=== PATIENT | female | born 1980 | race Caucasian/White ===

== ENCOUNTER 2021-04-12 03:30 | Outpatient (CLI) | payer MEDICAID, SELFPAY ==
--- OUTSIDE RECORDS SUMMARY | 2021-04-12 03:33 | XMS_ITS ---
:1980 Author Care Team Providers Name Role Phone DR. MERLINE LOPEZ Primary Care Provider [phone] DR. MERLINE LOPEZ Referring Provider [phone] Allergies Code Code System Name Reaction Severity Status Onset 017219 RxNorm Estrogel ? ? Active ? 061784 RxNorm Vicodin Hives ? Active ? Itching ? Active ? Medications Name Status Start Date Stop Date ? ? dextroamphetamine ER 10 mg capsule,extended release Active ? Not available Take 2 capsules every day by oral route. escitalopram 10 mg tablet Active ? Not av ailable Take 1 tablet every day by oral route. ibuprofen 600 mg tablet Active ? Not avai lable Take 1 tablet 3 times a day by oral route as needed. lorazepam 1 mg tablet Active ? Not availa ble Take 1 tablet every 6 hours by oral route as needed. metoprolol succinate ER 25 mg tablet,extended release 24 hr Acti ve ? Not available Take 1 tablet every day by oral route. Problems Name Status Onset Date Source ? Obesity Active 10/08/2018 ? Generalized Anxiety Disorder Active 10/08/2018 ? Factitious Disorder Active 10/08/2018 ? Depressive Disorder Active 10/08/2018 ? Attention Deficit Hyperactivity Disorder Active 019 ? Lesion of Ulnar Nerve Active 10/08/2018 ? Neuropathy Active 10/08/2018 ? Disorder of Teeth AND/OR Supporting Active 10/08/2018 ? 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 Neck Pain Active 10/08/2018 ? Brachial Neuritis Active 10/08/2018 ? Sciatica Active 10/08/2018 ? Muscle Weakness Active 10/08/2018 ? Pain in Left Arm Active 10/08/2018 ? Sleep Disorder Active 10/08/2018 ? Anesthesia of Skin Active 10/08/2018 ? Palpitations Active 10/08/2018 ? Generalized Abdominal Pain Active 10/08/2018 ? Pain in Right Foot Active 10/08/2018 ? Cyst of Left Ovary Active 10/08/2018 ? Procedures Date Name Performed by ? 05/14/2014 Oophorectomy Information not avai lable 10/12/2012 Surgical Procedure on Cervical Spine Inf ormation not available Results Lab Results None recorded. Past Encounters None recorded. Social History Tobacco Smoking Status Former Smoker Notes: 10/09/18 Vaccine List Vaccine Type Tdap 04/06/2012 Plan of Care Reminders Provider Appointments None ? ? recorded. Lab None ? ? recorded. Referral None ? ? recorded. Procedures None ? ? recorded. Surgeries None ? ? recorded. Imaging None ? ? recorded. Vitals Height Weight BMI Blood Pressure 160.02 cm 86.18 kg 33.7 kg/m2 118/62 mm[Hg]
--- OUTSIDE RECORDS SUMMARY | 2021-04-12 03:33 | XMS_ITS | Encounter Summary ---
:1980 Author Care Team Providers Name Role Phone Porfirio Engel MD Primary Care Provider [phone] Reason for Visit None recorded. Assessment and Plan 1. Generalized anxiety disorder ongoing stressors with ongoing relational issues. feels dose adjustment may be beneficial ? duloxetine 30 mg capsule,d elayed release 2. Attention deficit hyperactivi ty disorder continue meds as in place 3. Depressive disorder increase meds as above 4. Non-epileptic myoclonus pseudoseizures. by report limi gilberto/less at this time. care as per neurology 5. Neck pain using msk relaxer as per neuro , seems to be helping, continue. 6. Headache daily, sometimes migraine. sta rted on mag by neuro as well as has triptan prn. Discussion Note: None recorded.Patient educational handouts: No information available. Plan of Care Reminders Provider Appointments None ? ? recorded. Lab None ? ? recorded. Referral None ? ? recorded. Procedures None ? ? recorded. Surgeries None ? ? recorded. Imaging None ? ? recorded. Medications Name Start Date ? ? Adderall XR 10 mg capsule,extended release ? Take 2 capsules every day by oral route. clonazepam 0.5 mg tablet ? 1 (one) Tablet Tablet: Twice daily duloxetine 30 mg capsule,delayed release ? Take 1 capsule every day by oral route. duloxetine 60 mg capsule,delayed release ? Take 1 capsule every day by oral route. IBU 600 mg tablet ? Take 1 tablet every 6 hours by oral route as needed. lorazepam 1 mg tablet ? TAKE ONE TABLET BY MOUTH EVERY 6 HOURS NEEDED magnesium 400 mg (as magnesium oxide) tablet ? Take 1 tablet every day by oral route at bedtime. meloxicam 15 mg tablet ? Take 1 tablet every day by oral route. methocarbamol 500 mg tablet ? Take 1 tablet every day by oral route at bedtime. Skelaxin 800 mg tablet ? Take 1 tablet every day by oral route at bedtime. Sprintec (28) 0.25 mg-35 mcg tablet ? Take 1 tablet every day by oral route. sumatriptan 50 mg tablet ? Take 1 tablet every 8 hours by oral route as directed . take one at onset of headache. may repeat x 1 in 4 h ours if still present. Notes: 01/26/21 verbal review Medications Administered None recorded. Vitals Height 5 ft 2.25 in Results Lab Results None recorded. Allergies Code Code System Name Reaction Severity Onset 759901 RxNorm Vicodin Hives ? Itching ? ? Problems Name Status Onset Date Source ? Intermittent Palpitations Active 05/22/2018 ? Body Mass Index 30+ - Obesity Active ? Hi story Obesity Active ? History Generalized Anxiety Disorder Active ? His tory Factitious Disorder Active ? History Depressive Disorder Active ? History Attention Deficit Hyperactivity Active ? History Disorder Seizure Disorder Active ? ? Lesion of Ulnar Nerve Active ? History Neuropathy Active ? History Neck Pain Active ? History Sciatica Active ? History Pain in Left Arm Active ? History Sleep Disorder Active ? History Palpitations Active ? History Generalized Abdominal Pain Active ? Histo ry Brachial Neuritis Active ? History Cyst of Left Ovary Active ? History Procedures Date Name Performed by ? 05/11/2020 Revise Ulnar Nerve at Elbow Information not available Notes: L anterior ulnar n. transposit ion 01/12/2015 Oophorectomy Information not avai lable 10/12/2012 Cervical Spine Surgery Information not a vailable Notes: Cervical fusion Vaccine List Vaccine Type COVID-19 vaccine, vector-nr, [id number], PF , 0.5 mL ([employer]) 07/21/2020 DTP 04/21/1983 08/08/1983 10/30/1984 12/27/1987 01/02/1989 influenza, injectable, quadrivalent, pre servative free 06/14/2015 04/11/2017 02/07/2018?0.5 mL 04/21/2019 03/01/2020 MMR 10/30/1984 09/06/1992 OPV 04/21/1983 08/08/1983 10/30/1984 12/27/1987 01/02/1989 Td (adult), adsorbed 05/14/2000 Tdap 04/06/2012?0.5 mL varicella Social History Tobacco Smoking Status Heavy Tobacco Smoker (1/2 pack per day) Any signs of neglect or no signs of neglect or abuse abuse? noted Are you currently employed? Y Have you used IV drugs? N Are you blind or do you have N difficulty seeing? What is your code status? 0 How much tobacco do you chew? none What was the date of your 12/16/2020 most recent tobacco screening? Do you have an advanced N directive? Do you feel safe at home? Y What is your exercise level? Occasional How many years have you 5 smoked tobacco? Animal exposure? Y Notes: Cat and Do g Live alone or with others? with others Notes: Lalita celaya and Bryn What is your level of alcohol Occasional consumption? Which of your hands is Right dominant? Education 2 Year College What is your current pack 20-29packyears years? Hard of hearing or deaf in Y Notes: Dec reased per pt one or both ears? Are you passively exposed to N smoke? What is your level of Moderate Notes: 2 cups o f coffee caffeine consumption? a day, 1 soda ever y other day. Are there any guns present in N your home? 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 Family History Relation Problem Onset Age of Age Notes Father Alcohol abuse (No N/A (No Notes) Information) Father Hypertensive disorder (No N/A (No No kenny) Information) Brother Deep venous thrombosis (No N/A (No N otes) Information) Functional Status No Impairment. Past Encounters 01/26/2021 Generalized Anxiety Disorder; Attention Deficit Hyperactivity Disorder; Depressive Disorder; Non-epileptic Myoclonus; Neck Pain; Headache Porfirio Engel MD: [address] [place] [phone], Ph. History of Present Illness ? Generalized Anxiety Disorder Reported By: Patient HPI: Context: life stressors; dom estic relationship, trauma triggers at work, kids, situational, confusion . Modifying Factors: rest; massage, medications. Associated Symp toms: difficulty concentrating, difficulty controlling worry, difficult y swallowing, excess anxiety, excessive sweating, increased heart ra te, nausea, diarrhea, fatigue, high irritability, muscle tension , muscle aches, trembling, twitching, exaggerated startle response , headaches, restlessness, sleep disturbances Note:
<div>Patient reports taking 60 mg duloxetine daily, would like to discuss an increase.</div><div>Patient reports decreased anxiety due to clonazepam, patient reports not taking during the day due to drowsiness. Patient reports taking one tab every afternoon after work, does not take a second dose. Patient reports difficulty obtaining counselling, does not know all of triggers, the last week </div><div>increased symptoms at work, and at home. ongoing relational stressors. limited seizure activity, has johnson daily, sometimes migraine, feels somewhat improved with magnesium. ongoing neck pain, med at night seems to help.</div>Review of Systems: ROS as noted in the HPI Review of Systems None recorded. Physical Exam ? Notes: <p>female nad, anxious at ti mes</p>
--- OUTSIDE RECORDS SUMMARY | 2021-04-12 03:33 | XMS_ITS ---
:1980 Author Care Team Providers Name Role Phone MERLINE ENGEL MD Primary Care Provider [phone] Allergies Code Code System Name Reaction Severity Status Onset 090682 RxNorm Vicodin Hives ? Active ? Itching ? Active ? 854430 RxNorm Estrogel ? ? Deactivated ? Medications Name Status Start Date Stop Date ? ? Adderall XR 10 mg capsule,extended release Active ? Not available Take 2 capsules every day by oral route. Adderall XR 15 mg capsule,extended Completed ? 12/06/2017 release Adderall XR 20 mg capsule,extended release Completed ? 05/22/2018 Take 1 capsule every day by oral route for 28 days. Ambien 5 mg tablet Completed 04/05/2015 06/01/2015 1 (one) Tablet: At bedtime as needed amitriptyline 10 mg tablet Completed 09/13/201511/10 1 (one) Tablet Tablet: at bedtime amoxicillin 875 mg tablet Completed 06/15/20152015 1 (one) Tablet: bid - twice daily amoxicillin 875 mg-potassium Completed ? 01/2019 clavulanate 125 mg tablet Augmentin 250 mg-62.5 mg/5 mL oral suspension Completed 04/23/2014 2 (two) Teaspoon: three times daily azithromycin 500 mg tablet Completed 03/12/201203/19 1 Tablet: qd - daily baclofen 20 mg tablet Completed 02/17/2015 03/18/2015 1 (one) Tablet Tablet: qhs - at bedtime Bactrim DS 800 mg-160 mg tablet Completed 09/12/2012 09/22/2012 1 Tablet: twice a day Bactroban 2 % topical cream Completed 02/05/201509/2014 1 (one) Application(s) Application(s): Twice daily benzonatate 100 mg capsule Completed ? 04/21 ciprofloxacin 500 mg tablet Completed ? 01/2019 citalopram 40 mg tablet Completed 12/09/2014 11/11/19 16 1 (one) Tablet: daily clonazepam 0.5 mg tablet Active ? Not rosanna ilable 1 (one) Tablet Tablet: Twice daily cyclobenzaprine 10 mg tablet Completed ? 1 Tablet: every eight hours, as needed dextroamphetamine-amphetamine 10 mg tablet Completed ? 03/01/2020 Take 1 tablet every day by oral route at noon. diazepam 5 mg tablet Completed 09/05/2011 09/10/2011 1 Tablet: tid - three times a day for muscle spasm doxepin 10 mg capsule Completed ? 04/29/2020 Take 1 capsule every day by oral route at bedtime. duloxetine 30 mg capsule,delayed release Active ? Not available Take 1 capsule every day by oral route. duloxetine 60 mg capsule,delayed release Active ? Not available Take 1 capsule every day by oral route. escitalopram 10 mg tablet Completed ? 2019 escitalopram 20 mg tablet Completed ? 2019 Flagyl 500 mg tablet Completed 04/28/2004 05/19/2004 1 Tablet: BID furosemide 20 mg tablet Completed 01/04/2015 01/12/20 15 1 (one) Tablet: daily hydrocodone 5 mg-acetaminophen 325 mg tablet Completed 08/23/2016 1 (one) Tablet: taper as discussed at ov hydrocodone 7.5 mg-acetaminophen 325 mg tablet Completed 0 09/12/2012 09/15/2012 1 Tablet: every 4-6 hours IBU 600 mg tablet Active ? Not available Take 1 tablet every 6 hours by oral route as needed. ibuprofen 800 mg tablet Completed 09/11/2011 12/10/19 12 1 Tablet: tid as needed lorazepam 1 mg tablet Active ? Not availa ble TAKE ONE TABLET BY MOUTH EVERY 6 HOURS NEEDED magnesium 400 mg (as magnesium oxide) tablet Active ? Not available Take 1 tablet every day by oral route at bedtime. meloxicam 15 mg tablet Active ? Not avail able Take 1 tablet every day by oral route. methocarbamol 500 mg tablet Active ? Not available Take 1 tablet every day by oral route at bedtime. methylprednisolone 4 mg tablet Completed 09/20/2011 0 09/29/2011 2 (two) twice daily Tablet: decrease as directed until disconti nued metoprolol succinate ER 25 mg Completed ? tablet,extended release 24 hr naproxen sodium 550 mg tablet Completed 10/27/2013 1 (one) Tablet Tablet: Twice daily as needed nicotine 21 mg/24 hr daily Completed 04/28/200405/19 transdermal patch omeprazole 20 mg tablet,delayed release Completed 09/13/19 16 07/24/[address]: daily Ortho Micronor 0.35 mg tablet Completed 12/13/2004 1 (one) Tablet: Daily oxycodone 5 mg tablet Completed 01/04/2015 01/25/2015 1 (one) Tablet: every 4 hours as needed penicillin V potassium 500 mg Completed ? tablet Percocet 10 mg-325 mg tablet Completed 12/09/2015 1 (one) Tablet: bid prn Percocet 5 mg-325 mg tablet Completed 04/05/201603/16 1-2 Tablet: one in am, two in pm prednisone 20 mg tablet Completed ? 10/30/19 20 2 tabs daily promethazine 25 mg tablet Completed 09/12/20122012 1 Tablet: every 8 hours prn nausea Pyridium 200 mg tablet Completed 06/21/2012 3 1 Tablet: three times daily sertraline 50 mg tablet Completed ? 12/15/19 20 Take 1 tablet every day by oral route. Skelaxin 800 mg tablet Active ? Not avail able Take 1 tablet every day by oral route at bedtime. Sprintec (28) 0.25 mg-35 mcg tablet Active ? Not available Take 1 tablet every day by oral route. Stool Softener 100 mg capsule Completed 02/28/2013 1 Capsule: as directed sumatriptan 50 mg tablet Active ? Not rosanna ilable Take 1 tablet every 8 hours by oral route as directed. take one at onset of headache. may repeat x 1 in [address] ill present. Terazol 7 0.4 % vaginal cream Completed 01/26/2005 1 (one) Applicator(s): QHS / HS tramadol 50 mg tablet Completed 12/07/2014 12/14/2014 1 Tablet: every six hours as needed for severe pain Valtrex 1 gram tablet Completed 11/03/2013 11/10/2013 1 (one) Tablet: every 8 hours Vyvanse 20 mg capsule Active ? Not availa ble Vyvanse 30 mg capsule Completed 05/13/2013 06/12/2013 1 Capsule: qam - every morning Vyvanse 50 mg capsule Completed 03/27/2013 05/01/2013 1 Capsule: qam - every morning Wellbutrin SR 150 mg tablet, 12 hr sustained-release Completed ? 05/22/2018 Take 1 tablet every day by oral route. Xopenex HFA 45 mcg/actuation aerosol inhaler Completed 04/11/2012 2 (two) inhalation two minutes apart: 3-4 times daily Zantac 150 mg tablet Completed 09/20/2011 09/29/2011 1 Tablet: daily Notes: 01/26/21 verbal review Problems Name Status Onset Date Source ? [...] Active ? History Neuropathy Active ? History Pharyngitis Unknown ? History Disorder of Upper Respiratory System Unknown ? History Disorder of Teeth AND/OR Supporting Unknown ? History Structures Arthrodesis Unknown ? History Neck Pain Active ? History Sciatica Active ? History Muscle Weakness Unknown ? History Pain in Left Arm Active ? History Fitting Procedure Unknown ? History Sleep Disorder Active ? History Anesthesia of Skin Unknown ? History Palpitations Active ? History Generalized Abdominal Pain Active ? Histo ry Brachial Neuritis Active ? History Procedure by Method Unknown ? History Measurement of Substance Unknown ? History Cyst of Left Ovary Active ? History Clinical Finding Unknown ? History Thrombophilia Unknown ? History Finding of Esophagus Unknown ? History Long-term Current Use of Drug Therapy Unknown ? History Procedures Date Name Performed by ? 05/11/2020 Revise Ulnar Nerve at Elbow Information not available Notes: L anterior ulnar n. transposit ion 01/12/2015 Oophorectomy Information not avai lable 10/12/2012 Cervical Spine Surgery Information not a vailable Notes: Cervical fusion Results Lab Results Date Name Specimen Result Interpretation Description Value Range Status Address ? 03/07/2021 Streptococcus THRT ? Final microbiology ? Final [facility] a, results Country Culture, Hospital Lab Throat (Internal) : [address], [facility] 03/07/2021 SARS CoV 2 RNA SWAB ? Covid-19 negative negat Final [place] (COVID-19), RT-PCR ana Count ry QL, extractor operator solvent process-PCR, [facility] ital Lab Respiratory Result (Inte rnal): Specimen [address] ? ? SWAB ? Performin kelli [facility] ? Final [facility] g Lab lab [facility] Hospital L ab (Internal) : [address] 04/21/2020 Calcium, BLD ? Ionized 1.17 mmol/L 1.12- Daiana l [place] Ionized, QN, Ca 1.32 Coun try Blood mmol/ Hospital L ab L (Internal) : [address] 04/21/2020 CBC W/ Auto BLD ? Wbc 7.9 10*3/uL 5.0-1 Fin al [place] Diff 0.0 Country 10*3/ Hospital L ab uL (Internal) : [address] ? ? BLD ? Rbc 4.63 10*6/uL 4.10- Final Nort h 5.30 Country 10*6/ Hospital L ab uL (Internal) : [address] ? ? BLD ? Hgb 13.7 g/dL 12.0- Final [place] 16.0 Country g/dL Hospital L ab (Internal) : [address] ? ? BLD ? Hct 41.5 % 37.0- Final [place] 47.0 Country % Hospital L ab (Internal) : [address] ? ? BLD ? Mcv 89.6 fL 80.0- Final [place] 96.0 Country fL Hospital L ab (Internal) : [address] ? ? BLD ? Mch 29.6 pg 26.0- Final [place] 32.0 Country pg Hospital L ab (Internal) : [address] ? ? BLD ? Mchc 33.0 g/dL 31.0- Final [place] 35.0 Country g/dL Hospital L ab (Internal) : [address] ? ? BLD ? Rdw 12.5 % 11.5- Final [place] 14.5 Country % Hospital L ab (Internal) : [address] ? ? BLD ? Plt 307 10*3/uL 130-4 Final [place] 50 Country 10*3/ Hospital L ab uL (Internal) : [address] [place] ? ? BLD ? Anc 4.69 10*3/uL ? Final Nort h Country Hospital L ab (Internal) : [address] [place] ? ? BLD ? Nlr 1.85 0.00- Final [place] 3.20 [facility] Hospital L ab (Internal) : [address] [place] ? ? BLD ? Neutro 59.7 % 40.0- Final [place] 75.0 Country % Hospital L ab (Internal) : [address] [place] ? ? BLD ? Lymph 32.1 % 20.0- Final [place] 50.0 Country % Hospital L ab (Internal) : [address] [place] ? ? BLD ? [place] 6.7 % 2.0-1 Final [place] 0.0 % Country Hospital L ab (Internal) : [address] ? ? BLD Low Eos 0.6 % 1.0-6 Final [place] .0 % Country Hospital L ab (Internal) : [address] ? ? BLD ? Baso 0.6 % 0.0-1 Final [facility] .0 % Country Hospital L ab (Internal) : [address] ? ? BLD ? Ig 0.3 % 0.0-0 Final [facility] .9 % [facility] Hospital L ab (Internal) : [address], [place] 04/21/2020 Ethanol, Blood S ? Alc <10.0 mg/dL 0.0-9 Final [facility] .9 Country (rule Hospital L ab overr (Internal) : lynnette) [address] mg/dL [address] t 04/21/2020 BMP, Serum or S ? g/r 99 mg/dL 74-10 Daiana l [place] Plasma 6 Country mg/dL Hospital L ab (Internal) : [address] ? ? S ? Bun 8 mg/dL 7-17 Final [facility] mg/dL Country Hospital L ab (Internal) : [address] [place] ? ? S Low Crea 0.50 mg/dL 0.52- Final [place] 1.04 Country mg/dL Hospital L ab (Internal) : [address] ? ? S ? Ca 9.6 mg/dL 8.4-1 Final [place] 0.2 Country mg/dL Hospital L ab (Internal) : [address] ? ? S ? Na 141 mmol/L 137-1 Final [facility] 45 Country mmol/ Hospital L ab L (Internal) : [address] ? ? S ? K 3.7 mmol/L 3.5-5 Final [facility] .1 Country mmol/ Hospital L ab L (Internal) : [address] ? ? S ? Cl 107 mmol/L 98-10 Final [facility] 7 Country mmol/ Hospital L ab L (Internal) : [address] ? ? S ? Tco2 26.0 mmol/L 22.0- Final [facility] 30.0 Country mmol/ Hospital L ab L (Internal) : [address] t 04/21/2020 Magnesium, QN, S ? mg 1.8 mg/dL 1.6-2 Fi nal [place] Serum or .3 Country Plasma mg/dL Hospital L ab (Internal) : [address] t 04/21/2020 TSH, Serum or S ? Tsh 1.31 u[IU]/mL 0.47- Final [place] Plasma 4.68 Country u[IU] Hospital L ab /mL (Internal) : [address] t 04/21/2020 UR ? Hcgu negative negat Final N orth Test, Urine ana Count ry Hospital L ab (Internal) : [address] t 04/21/2020 Drug Screen, UR ABNORM Thc positive neg Final [place] Urine AL NG/mL (50 Country NG/mL Hospital L ab ) (Internal) : NG/mL [address] ? ? UR ? Pcp negative neg Final [facility] (25 Country NG/mL Hospital L ab ) (Internal) : [address] t ? ? UR ? Maile negative neg Final [facility] (150 Country NG/mL Hospital L ab ) (Internal) : [address] ? ? UR ? Met negative neg Final [facility] (500 Country NG/mL Hospital L ab ) (Internal) : [address] t ? ? UR ? Opi negative neg Final [facility] (100 Country NG/mL Hospital L ab ) (Internal) : [address], [place] ? ? UR ABNORM Amp positive neg Final [place] AL (500 Country NG/mL Hospital L ab ) (Internal) : [address] ? ? UR ABNORM Bzo positive neg Final [place] AL (150 Country NG/mL Hospital L ab ) (Internal) : [address] ? ? UR ? Tca negative neg Final [facility] (300 Country NG/mL Hospital L ab ) (Internal) : [address] ? ? UR ? Mtd negative neg Final [facility] (200 Country NG/mL Hospital L ab ) (Internal) : [address] ? ? UR ? Bar negative neg Final [facility] (200 Country NG/mL Hospital L ab ) (Internal) : [address] ? ? UR ? Oxy negative neg Final [facility] (100 Country NG/mL Hospital L ab ) (Internal) : [address] ? ? UR ? Ppx negative neg Final [facility] (300 Country NG/mL Hospital L ab ) (Internal) : [address], [place] ? ? UR ? Bup negative neg Final [facility] (10 Country NG/mL Hospital L ab ) (Internal) : [address] t 08/26/2019 CBC W/ Auto BLD ? Wbc 7.3 10*3/uL 5.0-1 Fin al [place] Diff 0.0 Country 10*3/ Hospital L ab uL (Internal) : [address], [place] ? ? BLD ? Rbc 4.79 10*6/uL 4.10- Final Nort h 5.30 Country 10*6/ Hospital L ab uL (Internal) : [address] ? ? BLD ? Hgb 13.9 g/dL 12.0- Final [place] 16.0 Country g/dL Hospital L ab (Internal) : [address] ? ? BLD ? Hct 41.4 % 37.0- Final [place] 47.0 Country % Hospital L ab (Internal) : [address] ? ? BLD ? Mcv 86.4 fL 80.0- Final [place] 96.0 Country fL Hospital L ab (Internal) : [address] ? ? BLD ? Mch 29.0 pg 26.0- Final [place] 32.0 Country pg Hospital L ab (Internal) : [address] [place] ? ? BLD ? Mchc 33.6 g/dL 31.0- Final [place] 35.0 Country g/dL Hospital L ab (Internal) : [address] [place] ? ? BLD ? Rdw 12.5 % 11.5- Final [place] 14.5 Country % Hospital L ab (Internal) : [address] ? ? BLD ? Plt 250 10*3/uL 130-4 Final [facility] 50 Country 10*3/ Hospital L ab uL (Internal) : [address] [place] ? ? BLD ? Anc 3.90 10*3/uL ? Final Nort h Country Hospital L ab (Internal) : [address] [place] ? ? BLD ? Nlr 1.41 0.00- Final [place] 3.20 Country Hospital L ab (Internal) : [address], [place] ? ? BLD ? Neutro 53.4 % 40.0- Final [place] 75.0 Country % Hospital L ab (Internal) : [address] [place] ? ? BLD ? Lymph 37.8 % 20.0- Final [place] 50.0 Country % Hospital L ab (Internal) : [address] [place] ? ? BLD ? [place] 7.1 % 2.0-1 Final [place] 0.0 % Country Hospital L ab (Internal) : [address] [place] ? ? BLD ? Eos 1.1 % 1.0-6 Final [facility] .0 % Country Hospital L ab (Internal) : [address] ? ? BLD ? Baso 0.5 % 0.0-1 Final [facility] .0 % Country Hospital L ab (Internal) : [address] [place] ? ? BLD ? Ig 0.1 % 0.0-0 Final [facility] .9 % Country Hospital L ab (Internal) : [address] [place] [place] 08/26/2019 CRP, High S ? Rcrp 0.11 mg/dL 0.10- Final [facility] Sensitivity, 0.30 Coun try Serum or mg/dL Hospital Lab Plasma (Internal) : [address] t 08/26/2019 ESR BLD ? Esr 7 mm/h 0-30 Final [facility] (Erythrocyte mm/h Coun try Sedimentation Hos pital Lab Rate), Blood (Int ernal): [address] 08/26/2019 CK S ? CK negative negat Final Nort h (Antinuclear Interpreta ana Country Antibodies) tion Hospi smith Lab Screen, Serum (I nternal): [address] 08/26/2019 Cyclic S ? Cyclic <15.6 U <20.0 Final Nort h Citrullinated Citrullina (nega Country Peptide Ab, gilberto tive) Hospi smith Lab Quant Peptide U (Internal ): Immunoassay, Ab, S [address] 05/22/2018 Amphetamines, UR - Amphetami 7412 NG/mL cutof Final [facility] QN, Urine ne-by f: 25 Country lc-MS/MS NG/mL Hospital Lab (Internal) : [address] ? ? UR - Phentermi negative cutof Final Nort h ne-by NG/mL f: 25 Country lc-MS/MS NG/mL Hospital Lab (Internal) : [address] ? ? UR - Methamphe negative cutof Final Nort h tamine-by NG/mL f: 25 Country lc-MS/MS NG/mL Hospital Lab (Internal) : [address] ? ? UR - Pseudoeph negative cutof Final Nort h edrine/eph NG/mL f: 25 Countr y edrine-by NG/mL Hospita l Lab lc-MS/MS (Interna l): [address] ? ? UR - Mda negative cutof Final North (Ecstasy NG/mL f: 25 Country Metabolite NG/mL Hospit al Lab )-by (Internal) : lc-MS/MS [address] ? ? UR - MDMA negative cutof Final North (Ecstasy)- NG/mL f: 25 Countr y by NG/mL Hospital L ab lc-MS/MS (Interna l): [address] ? ? UR - Amphetami positive. ? Final Nor th ricardo Country Interpreta Hospit al Lab tion (Internal) : [address] 02/18/2018 Urinalysis, UR - UA-color yellow pale Final [place] Dipstick, yello [facility] Reflex Micro w Hosp ital Lab (Internal) : [address] ? ? UR ABNORM UA-appear hazy clear Final [facility] Hospital L ab (Internal) : [address] ? ? UR - UA-gluc negative negat Final [facility] L ab (Internal) : [address] ? ? UR - UA-bili negative negat Final [facility] L ab (Internal) : [address] ? ? UR - UA-ketone negative negat Final [facility] ab (Internal) : [address] ? ? UR - UA-spec 1.020 1.003 Final [facility] -1.03 [place] [address] Hospital L ab (Internal) : [address] ? ? UR ABNORM UA-blood moderate negat Final [facility] ab (Internal) : [address] ? ? UR - UA-pH 5.5 [pH] 4.6-[address] [pH] Hospital L ab (Internal) : [address] ? ? UR - UA-prot negative negat Final [facility] ab (Internal) : [address] ? ? UR - UA-urobil normal kareem Final [facility] L ab (Internal) : [address] ? ? UR ABNORM UA-nitrit positive negat Final Nort [facility] L ab (Internal) : [address] ? ? UR ABNORM UA-leuk small negat Final [facility] ab (Internal) : [address] 02/18/2018 Urinalysis, UR ABNORM UA-WBC 50-100 [hpf] 0-3 F inal [place] Microscopic AL [hpf] Count Hospital L ab (Internal) : [address] ? ? UR ABNORM UA-RBC 10-25 [hpf] 0-2 Final Nort h AL [hpf] [facility] Hospital ab (Internal) : [address] ? ? UR ABNORM UA-bacter moderate none Final Nort h AL ia [hpf] seen Country [hpf] Hospital L ab (Internal) : [address] ? ? UR ABNORM UA-epithe few [hpf] none Final Nor th AL lial seen Country [hpf] Hospital L ab (Internal) : [address] [place] ? ? UR ABNORM UA-mucus few [hpf] none Final Nort h AL seen Country [hpf] Hospital L ab (Internal) : [address] 02/18/2018 Culture UR - Final microbiology ? Final [facility] (Embudo results Country Count), Urine Hos pital Lab (Internal) : [address] 12/02/2017 CBC W/ Auto BLD High Wbc 12.1 10*3/uL 5.0-1 Fi nal [place] Diff 0.0 Country 10*3/ Hospital L ab uL (Internal) : [address] sy[place] ? ? BLD - Rbc 4.94 10*6/uL 4.10- Final Nort h 5.30 Country 10*6/ Hospital L ab uL (Internal) : [address] ? ? BLD - Hgb 14.2 g/dL 12.0- Final [place] 16.0 Country g/dL Hospital L ab (Internal) : [address] ? ? BLD - Hct 41.6 % 37.0- Final [place] 47.0 Country % Hospital L ab (Internal) : [address] [place] ? ? BLD - Mcv 84.2 fL 80.0- Final [place] 96.0 Country fL Hospital L ab (Internal) : [address] ? ? BLD - Mch 28.7 pg 26.0- Final [place] 32.0 Country pg Hospital L ab (Internal) : [address] ? ? BLD - Mchc 34.1 g/dL 31.0- Final [place] 35.0 Country g/dL Hospital L ab (Internal) : [address] ? ? BLD - Rdw 12.2 % 11.5- Final [place] 14.5 Country % Hospital L ab (Internal) : [address] ? ? BLD - Plt 290 10*3/uL 130-4 Final North 50 Country 10*3/ Hospital L ab uL (Internal) : [address] ? ? BLD - Anc 8.11 10*3/uL ? Final Nort h Country Hospital L ab (Internal) : [address] ? ? BLD - Neutro 67.0 % 40.0- Final [place] 75.0 Country % Hospital L ab (Internal) : [address] ? ? BLD - Lymph 25.7 % 20.0- Final [place] 50.0 Country % Hospital L ab (Internal) : [address] ? ? BLD - [place] 6.1 % 2.0-1 Final [place] 0.0 % Country Hospital L ab (Internal) : [address] ? ? BLD Low Eos 0.6 % 1.0-6 Final [place] .0 % Country Hospital L ab (Internal) : [address] ? ? BLD - Baso 0.3 % 0.0-1 Final [place] .0 % Country Hospital L ab (Internal) : [address] ? ? BLD - Ig 0.3 % 0.0-0 Final [facility] .9 % Country Hospital L ab (Internal) : [address] 12/02/2017 CMP, Serum or S High g/r 123 mg/dL 74-10 Fin al [place] Plasma 6 Country mg/dL Hospital L ab (Internal) : [address] ? ? S - Bun 11 mg/dL 7-17 Final [facility] mg/dL Country Hospital L ab (Internal) : [address] ? ? S - Crea 0.60 mg/dL 0.52- Final [place] 1.04 Country mg/dL Hospital L ab (Internal) : [address] ? ? S - Ca 10.1 mg/dL 8.4-1 Final [place] 0.2 Country mg/dL Hospital L ab (Internal) : [address] ? ? S - Na 138 mmol/L 137-1 Final North 45 Country mmol/ Hospital L ab L (Internal) : [address] ? ? S - K 3.9 mmol/L 3.5-5 Final North .1 Country mmol/ Hospital L ab L (Internal) : [address] ? ? S - Cl 101 mmol/L 98-10 Final [place] 7 Country mmol/ Hospital L ab L (Internal) : [address] ? ? S - Tco2 27.0 mmol/L 22.0- Final [place] 30.0 Country mmol/ Hospital L ab L (Internal) : [address] ? ? S High Tp 8.3 g/dL 6.3-8 Final [place] .2 Country g/dL Hospital L ab (Internal) : [address] ? ? S - Alb 4.5 g/dL 3.5-5 Final [place] .0 Country g/dL Hospital L ab (Internal) : [address] ? ? S - Tbil 0.8 mg/dL 0.2-1 Final [place] .3 Country mg/dL Hospital L ab (Internal) : [address] ? ? S - Alp 96 U/L 50-13 Final [place] 6 U/L [facility] Hospital L ab (Internal) : [address] ? ? S - Alt 51 U/L 9-52 Final [place] (Sgpt) U/L [facility] Hospital L ab (Internal) : [address] ? ? S High Ast 51 U/L 14-36 Final [place] (Sgot) U/L [facility] Hospital L ab (Internal) : [address] 12/02/2017 Troponin I, S - Trop <0.06 NG/mL 0.00- Fin al [place] Serum or 0.06 Country Plasma NG/mL Hospital L ab (Internal) : [address] 12/02/2017 Urinalysis, UR - UA-color yellow pale Final [place] Dipstick, yello Country Reflex Micro w Hosp ital Lab (Internal) : [address] ? ? UR ABNORM UA-appear hazy clear Final [place] [facility] Hospital L ab (Internal) : [address] ? ? UR - UA-spec 1.020 1.003 Final [place] Grav -1.03 Country 5 Hospital L ab (Internal) : [address] ? ? UR High UA-pH 8.5 [pH] 4.6-8 Final [place] .0 [facility] [pH] Hospital L ab (Internal) : [address] ? ? UR - UA-leuk negative negat Final [place] [facility] Hospital L ab (Internal) : [address] ? ? UR - UA-nitrit negative negat Final [facility] L ab (Internal) : [address] ? ? UR - UA-prot negative negat Final [facility] L ab (Internal) : [address] ? ? UR - UA-gluc negative negat Final [facility] L ab (Internal) : [address] ? ? UR - UA-ketone negative negat Final [facility] L ab (Internal) : [address] ? ? UR - UA-urobil normal kareem Final [facility] ab (Internal) : [address] ? ? UR - UA-bili negative negat Final [facility] ab (Internal) : [address] ? ? UR - UA-blood negative negat Final [facility] L ab (Internal) : [address] 12/02/2017 Urinalysis, UR - UA-WBC 0-3 [hpf] 0-3 [facility] Microscopic [hpf] Count Hospital L ab (Internal) : [address] ? ? UR - UA-RBC 0-2 [hpf] 0-2 Final [place] [hpf] [facility] Hospital L ab (Internal) : [address] ? ? UR - UA-bacter rare [hpf] none Final No rth ia seen Country [hpf] Hospital L ab (Internal) : [address] ? ? UR - UA-epithe rare [hpf] none Final No rth lial seen Country [hpf] Hospital L ab (Internal) : [address] ? ? UR ABNORM UA-mucus rare [hpf] none Final Nor th AL seen Country [hpf] Hospital L ab (Internal) : [address] ? ? UR - Amorph moderate ? Final [place] [hpf] Country Hospital L ab (Internal) : [address] 12/02/2017 D-dimer, PLASMA - Dimq 0.32 mg/L 0.00- Final N orth Quant, Plasma 0.50 Cou ntry mg/L Hospital L ab (Internal) : [address] t Past Encounters 01/26/2021 Generalized Anxiety Disorder; Attention Deficit Hyperactivity Disorder; Depressive Disorder; Non-epileptic Myoclonus; Neck Pain; Headache Merline Engel MD: [address] [place] [phone], Ph. 12/16/2020 Generalized Anxiety Disorder; Seizure Di sorder; Neck Pain Merline Engel MD: [address] [place] [phone], Ph. 12/03/2020 Initial Prescription of Oral Contracepti on Merline Engel MD: [address] [place] [phone], Ph. 11/04/2020 Generalized Anxiety Disorder; Seizure Di sorder Merline Engel MD: [address] [place] [phone], Ph. 08/27/2020 Cubital Tunnel Syndrome; Pain of Left El bow Joint; Paresthesia of Upper Limb Ana Rosa Mendoza, OT: [address] [phone], Ph. 07/05/2020 Pérez Costa MD: [address] [place] [phone], Ph. 06/30/2020 Dissociative Convulsions; Depressive Dis order; Generalized Anxiety Disorder; Neck Pain Merline Engel MD: [address] [place] [phone], Ph. 06/22/2020 Cubital Tunnel Syndrome; Pain of Left El bow Joint; Paresthesia of Upper Limb Ana Rosa Mendoza, OT: [address] [facility] [address] [phone], Ph. 06/09/2020 Vika Hernandez PA-C: [address] [place] [phone], Ph. 05/27/2020 Cubital Tunnel Syndrome; Pain of Left El bow Joint; Paresthesia of Upper Limb Ana Rosa Mendoza, OT: [address] [place] [phone], Ph. 05/20/2020 Cubital Tunnel Syndrome; Pain of Left El bow Joint; Paresthesia of Upper Limb Aan Rosa Mendoza, OT: [address] [place] [phone], Ph. 05/19/2020 Vika Hernandez PA-C: [address] [place] [phone], Ph. 04/22/2020 Neck Pain; Dissociative Convulsions; Gen eralized Anxiety Disorder; Migraine Merline Engel MD: [address] [place] [phone], Ph. 04/05/2020 Pérez Costa MD: [address] [place] [phone], Ph. 03/01/2020 Administration of Influenza Vaccine; Cub ital Tunnel Syndrome; Attention Deficit Hyperactivity Disorder; Generalized Anxiety Disorder Merline Engel MD: [address] [place] [phone], Ph. 12/15/2019 Generalized Anxiety Disorder; Attention Deficit Hyperactivity Disorder Merline Engel MD: [address] [place] [phone], Ph. 10/30/2019 Depressive Disorder; Generalized Anxiety Disorder; Insomnia; Cubital Tunnel Syndrome Merline Engel MD: [address] [place] [phone], Ph. Social History Tobacco Smoking Status Heavy Tobacco Smoker (1/2 pack per da y) Vaccine List Vaccine Type COVID-19 vaccine, vector-nr, rS-Ad26, PF , 0.5 mL ([place]) 07/21/2020 DTP 04/21/1983 08/08/1983 10/30/1984 12/27/1987 01/02/1989 influenza, injectable, quadrivalent, pre servative free 06/14/2015 04/11/2017 02/07/2018?0.5 mL 04/21/2019 03/01/2020 MMR 10/30/1984 09/06/1992 OPV 04/21/1983 08/08/1983 10/30/1984 12/27/1987 01/02/1989 Td (adult), adsorbed 05/14/2000 Tdap 04/06/2012?0.5 mL varicella Plan of Care Reminders Provider Appointments None ? ? recorded. Lab None ? ? recorded. Referral None ? ? recorded. Procedures None ? ? recorded. Surgeries None ? ? recorded. Imaging None ? ? recorded. Vitals 01/26/2021 03:20PM Telehealth 20 Height 158.12 cm 12/16/2020 10:40AM Follow Up 20 Height Weight BMI Blood Pressure 158.12 cm 69.58 kg 27.8 kg/m2 132/88 mm[Hg] 12/03/2020 04:00PM Follow Up 20 Height Weight BMI Blood Pressure 158.12 cm 66.85 kg 26.7 kg/m2 126/80 mm[Hg] 11/04/2020 09:00AM Follow Up 20 Height Weight BMI Blood Pressure 158.12 cm 67.13 kg 26.9 kg/m2 130/80 mm[Hg] 06/30/2020 03:00PM Follow Up 20 Height Weight BMI Blood Pressure 158.12 cm 68.49 kg 27.4 kg/m2 120/80 mm[Hg] 06/09/2020 09:45AM Follow Up 15 Height Weight 158.12 cm 05/19/2020 10:00AM Post Op 15 Height Weight 158.12 cm 04/22/2020 09:40AM Acute 20 Height Weight BMI Blood Pressure 158.12 cm 66.68 kg 26.7 kg/m2 130/70 mm[Hg] 04/05/2020 03:15PM Consult 15 Height Weight BMI Blood Pressure 158.12 cm 65.77 kg 26.3 kg/m2 122/68 mm[Hg] 03/01/2020 03:20PM Follow Up 20 Height Weight BMI Blood Pressure 158.12 cm 68.95 kg 27.6 kg/m2 130/80 mm[Hg] 12/15/2019 01:20PM Follow Up 20 Height Weight BMI Blood Pressure 158.12 cm 71.21 kg 28.5 kg/m2 130/80 mm[Hg] 10/30/2019 01:40PM Acute 20 Height Weight BMI Blood Pressure 158.12 cm 73.3 kg 29.3 kg/m2 130/86 mm[Hg] 07/18/2019 02:40PM Follow Up 20 Height Weight BMI Blood Pressure 158.12 cm 78.61 kg 31.4 kg/m2 146/88 mm[Hg] 04/21/2019 03:40PM Follow Up 20 Height Weight BMI Blood Pressure 158.12 cm 82.75 kg 33.1 kg/m2 138/84 mm[Hg] 03/26/2019 10:20AM Same Day 20 Height Weight BMI Blood Pressure 158.12 cm 85 kg 34 kg/m2 130/80 mm[Hg] 12/26/2018 12:40PM Follow Up 20 Height Weight BMI Blood Pressure 158.12 cm 86.27 kg 34.5 kg/m2 134/74 mm[Hg] 09/25/2018 04:00PM Follow Up 20 Height Weight BMI Blood Pressure 158.12 cm 86.35 kg 34.5 kg/m2 132/80 mm[Hg] 08/19/2018 03:00PM Follow Up 20 Height Weight BMI Blood Pressure 158.12 cm 88.9 kg 35.6 kg/m2 120/80 mm[Hg] 05/22/2018 04:00PM Follow Up 20 Height Weight BMI Blood Pressure 158.12 cm 85.02 kg 34 kg/m2 140/90 mm[Hg] 02/18/2018 02:40PM Acute 20 Height Weight BMI Blood Pressure 158.12 cm 85.41 kg 34.2 kg/m2 130/82 mm[Hg] 02/07/2018 03:20PM Follow Up 20 Height Weight BMI Blood Pressure 158.12 cm 85.08 kg 34 kg/m2 138/88 mm[Hg] 12/06/2017 02:20PM Follow Up 20 Height Weight BMI Blood Pressure 158.12 cm 85.05 kg 34 kg/m2 158/90 mm[Hg] 07/12/2017 Weight Blood Pressure 86.09 kg 140/78 mm[Hg] 04/11/2017 Weight Blood Pressure 88.9 kg 144/88 mm[Hg] 02/19/2017 Height Weight Blood Pressure 158.12 cm 90.95 kg 137/83 mm[Hg] 01/01/2017 Weight Blood Pressure 92.53 kg 144/92 mm[Hg] 07/24/2016 Weight Blood Pressure 86.64 kg 146/98 mm[Hg] 05/26/2016 Weight Blood Pressure 86.95 kg 156/82 mm[Hg] 04/12/2016 Weight Blood Pressure 84.37 kg 148/90 mm[Hg] 02/10/2016 Weight Blood Pressure 81.1 kg 144/94 mm[Hg] 12/29/2015 Height Weight Blood Pressure 158.75 cm 80.74 kg 140/100 mm[Hg] 11/11/2015 Weight Blood Pressure 80.6 kg 132/84 mm[Hg] 10/13/2015 Weight Blood Pressure 79.33 kg 150/90 mm[Hg] 09/13/2015 Height Weight Blood Pressure 157.48 cm 82.24 kg 146/94 mm[Hg] 08/12/2015 Height Weight Blood Pressure 157.48 cm 81.56 kg 132/78 mm[Hg] 07/26/2015 Height Weight Blood Pressure 157.48 cm 81.56 kg 150/94 mm[Hg] 07/09/2015 Height Weight Blood Pressure 157.48 cm 80.6 kg 138/80 mm[Hg] 06/14/2015 Height Weight Blood Pressure 157.48 cm 80.6 kg 130/84 mm[Hg] 06/01/2015 Height Weight Blood Pressure 157.48 cm 81.19 kg 122/76 mm[Hg] 05/27/2015 Weight Blood Pressure 82.55 kg 130/70 mm[Hg] 04/15/2015 Weight Blood Pressure 83.82 kg 110/70 mm[Hg] 03/18/2015 Height Weight Blood Pressure 158.75 cm 82.55 kg 110/68 mm[Hg] 03/12/2015 Blood Pressure 124/80 mm[Hg] 02/17/2015 Blood Pressure 130/78 mm[Hg] 02/05/2015 Weight Blood Pressure 82.64 kg 130/80 mm[Hg] 01/29/2015 Height Weight Blood Pressure 158.75 cm 81.19 kg 120/70 mm[Hg] 01/25/2015 Weight Blood Pressure 81.65 kg 132/70 mm[Hg] 01/04/2015 Weight Blood Pressure 81.96 kg 130/80 mm[Hg] 12/17/2014 Weight Blood Pressure 80.74 kg 128/80 mm[Hg] 12/10/2014 Height Weight Blood Pressure 157.48 cm 81.92 kg 150/80 mm[Hg] 12/07/2014 Height Weight Blood Pressure 157.48 cm 83.55 kg 148/90 mm[Hg] 07/31/2014 Weight Blood Pressure 85.73 kg 120/80 mm[Hg] 04/13/2014 Weight Blood Pressure 85.18 kg 140/80 mm[Hg] 01/15/2014 Weight Blood Pressure 81.6 kg 118/74 mm[Hg] 10/27/2013 Weight Blood Pressure 79.38 kg 118/80 mm[Hg] 10/16/2013 Weight Blood Pressure 79.1 kg 124/78 mm[Hg] 09/04/2013 Height Weight Blood Pressure 157.48 cm 80.56 kg 144/94 mm[Hg] 05/29/2013 Weight Blood Pressure 81.28 kg 126/80 mm[Hg] 04/09/2013 Weight Blood Pressure 80.56 kg 134/80 mm[Hg] 03/27/2013 Height Weight Blood Pressure 157.48 cm 82.19 kg 118/76 mm[Hg] 02/28/2013 Height Weight Blood Pressure 157.48 cm 82.33 kg 112/74 mm[Hg] 02/27/2013 Height Weight Blood Pressure 157.48 cm 83.01 kg 118/66 mm[Hg] 02/12/2013 Height Weight Blood Pressure 157.48 cm 81.19 kg 118/80 mm[Hg] 01/17/2013 Height Weight Blood Pressure 157.48 cm 82.58 kg 120/72 mm[Hg] 12/26/2012 Weight Blood Pressure 84.14 kg 110/80 mm[Hg] 10/14/2012 Weight Blood Pressure 84.48 kg 118/70 mm[Hg] 09/12/2012 Weight Blood Pressure 84.5 kg 130/88 mm[Hg] 08/21/2012 Weight Blood Pressure 84.82 kg 138/90 mm[Hg] 07/17/2012 Weight Blood Pressure 83.18 kg 120/70 mm[Hg] 06/28/2012 Height Weight Blood Pressure 157.48 cm 84.59 kg 118/70 mm[Hg] 06/21/2012 Weight Blood Pressure 83.32 kg 122/78 mm[Hg] 04/06/2012 Height Weight Blood Pressure 157.48 cm 83.01 kg 122/66 mm[Hg] 03/12/2012 Height Weight Blood Pressure 157.48 cm 82.1 kg 132/76 mm[Hg] 02/20/2012 Height Weight Blood Pressure 157.48 cm 81.65 kg 142/80 mm[Hg] 02/02/2012 Height Weight Blood Pressure 157.48 cm 80.74 kg 120/70 mm[Hg] 12/29/2011 Height Weight Blood Pressure 157.48 cm 81.65 kg 136/92 mm[Hg] 11/28/2011 Height Weight Blood Pressure 157.48 cm 79.83 kg 145/78 mm[Hg] 11/02/2011 Height Weight Blood Pressure 157.48 cm 78.47 kg 122/78 mm[Hg] 10/06/2011 Height Weight Blood Pressure 157.48 cm 80.29 kg 144/84 mm[Hg] 09/20/2011 Height Weight Blood Pressure 157.48 cm 80.29 kg 130/90 mm[Hg] 09/11/2011 Height Weight Blood Pressure 158.12 cm 81.65 kg 136/76 mm[Hg] 09/01/2011 Height Weight Blood Pressure 158.12 cm 81.65 kg 144/82 mm[Hg] 12/29/2005 Height Weight 160.02 cm 69.4 kg 08/15/2005 Height Weight Blood Pressure 160.02 cm 65.32 kg 110/64 mm[Hg] 05/20/2004 Height Weight Blood Pressure 160.02 cm 60.78 kg 110/68 mm[Hg]
--- NOTE | 2021-04-18 12:43 | PDOC.EEG ---
Neurology EEG EEG: [facility] Department of Neurology LONG-TERM AMBULATORY EEG REPORT Date of Recordin04/12/21 at 13:31:38 to 04/13/21 at 10:01:58 Interpreting Physician: Dr. Macey Gaona PCP/Referring Provider: Dr. Porfirio Engel Reason for study: Ms. Bonner is a 40 year-old woman with known non-epileptic seizures, now with new nocturnal events. Current Medications: Home Medications Medication Instructions Recorded Confirmed Type dextroamphetamine-amphetamine ER 20 mg PO DAILY cap 09/16/19 04/04/21 History 10 mg 24hr capsule,extend release ibuprofen 600 mg tablet 600 mg PO Q6H PRN 09/16/19 04/04/21 History duloxetine 60 mg capsule,delayed 60 mg PO DAILY 07/07/20 04/04/21 History release acetaminophen 500 mg tablet 500 mg PO ONCE PRN tab 01/05/21 04/04/21 History clonazepam 0.5 mg tablet 0.5 mg PO BID PRN 01/05/21 04/04/21 History naproxen sodium 220 mg tablet 220 mg PO ONCE PRN tab 01/05/21 04/04/21 History methocarbamol 500 mg tablet 500 mg PO QHS PRN #30 tab 04/04/21 04/04/21 Rx sumatriptan succinate 50 mg tablet See Rx Instructions PO .COMPLEX #9 04/04/21 04/04/21 Rx tab METHODS: An 18-channel digitized electroencephalogram was recorded in the ambulatory setting with video. The 10/20 international system of electrode placement was used and bipolar and referential electrode montages were recorded. In addition to EEG the patient was monitored for EKG and by video. Activation procedures of photic stimulation and hyperventilation were performed if applicable. The duration of the recording was ~23 hours. DESCRIPTION OF EEG: Waking background activity: During maximal wakefulness a 10-Hz posterior background rhythm was present which was well-modulated, symmetrical, reactive to eye opening, and of moderate voltage. Faster frequencies were present in the bilateral anterior head regions. There was a normal anterior-posterior voltage gradient. Drowsy and sleeping background activity: During drowsiness, there was attenuation of the posterior dominant background rhythm and vertex waves. Normal stage II and III sleep was present with symmetrical sleep spindles, K-complexes, and vertex waves with slowing of the background rhythm to delta/theta frequencies. REM sleep manifested by rapid lateral eye movements and faster background rhythms was recorded. Arousal was unremarkable, except that she had frequent arousals seen during sleep. Interictal abnormalities: none. Ictal findings: No events captured. Activating Procedures: Photic stimulation was performed which produced a symmetrical posterior driving response at various flash frequencies. Of note, there was excessive frontal driving. Hyperventilation was performed with fair effort and produced no physiological slowing of the background. EKG: EKG revealed normal sinus rhythm. INTERPRETATION: This long-term EEG is normal during the awake and sleep states as well as during the activation procedures. No events were captured. She had frequent nocturnal arousals. PRIOR EEG: -vEEG (2000 at [facility]): reportedly consistent with non-epileptic seizures, though I do not have report. -EEG (02/15/15 at [facility] Two stereotypical events captured; one triggered by photic and the other by the fire alarm. Both with no associated EEG changes. Thus, felt to be consistent with non-epileptic events. Otherwise normal study. CLINICAL CORRELATION: No focal regions of cerebral dysfunction or epileptiform activity was present. The frequent awakenings is a suggestive of an underlying sleep disorder. Epilepsy remains a clinical diagnosis and a normal EEG does not rule out epilepsy. Clinical correlation is advised. Macey Gaona MD
== END 2021-04-12 03:31 | disposition home or self-care (01) ==
LOC: RT 03:31
PROVIDERS: Visit Provider Psychiatry & Neurology Neurology
DX: R56.9 Unspecified convulsions (principal)
CPT/HCPCS: 95714

== ENCOUNTER 2022-06-01 10:04 | Outpatient (CLI) | payer MEDICAID, SELFPAY ==
--- NOTE | 2022-06-01 07:00 | DI.RAD_ITS ---
Exam(s) XR PAIN CLINIC CERVICAL SP 2V EXAM: XR PAIN CLINIC CERVICAL SP 2V CLINICAL HISTORY: Dx:Cervical Spondylosis TECHNIQUE: 2D and realtime digital imaging was performed. Radiologist not present. CONTRAST MATERIAL: None. COMPARISON: No exams were available for comparison FINDINGS: Fluoroscopy was provided for pain management therapy. Please refer to procedure report or details. Radiation Exposure Index: Ka,r=0.72 mGy IMPRESSION: As above. RADIATION DOSE DELIVERED:
[2022-06-01 10:15] VITALS: BP 131/86; PULSE 74; RESP 20; TEMP 36.8; O2SAT 99
[2022-06-01] MEDS: Bupivacaine 0.5% Pres-Free 10 ML VIAL IJ (11:16)
[2022-06-01 11:17] VITALS: BP 153/92; PULSE 74; RESP 16; O2SAT 100
[2022-06-01] MEDS: Omnipaque 240 MG/ML 50 ML BTL IJ (11:17)
--- NOTE | 2022-06-01 11:23 | PDOC.PAIN_ITS ---
Date of service: 06/01/22 Time of Service: 11:27 Pain Clinic Procedure Note Procedure Note Procedure Note: CERVICAL MEDIAL BRANCH BLOCKS #2 Lisa Bonner has been referred to the [facility] for cervical medial branch blocks. COMMENTS: She was previously evaluated in the clinic. Pre-procedure pain VAS was 8/10. Dx: Cervical spondylosis without myelopathy Patient was interviewed and the medical record reviewed. There were no medical, pharmacologic, radiographic or other structural contraindications to attempting fluoroscopically guided local anesthetic cervical medial branch blocks. Risks and expected side effects as well as potential benefit of the procedure were reviewed and voiced concerns addressed. The printed consent form was signed and witnessed. Standard time-out procedure was performed. Patient was placed in the Right lateral decubitus position on the fluoroscopy table and automated blood pressure cuff and pulse oximeter applied. The skin entry points for approaching the anatomic target points of the segmental medial branches of the left C3, C4, C5 and C6 were identified with fluoroscopy and marked. Following thorough Chlorhexadine preparation of the skin and draping and 1% lidocaine infiltration of the skin entry points and subcutaneous tissues, a 25 gauge spinal needle was placed under fluoroscopic guidance down on to the target point for each respective segmental medial branch. Position was confirmed in A/P and leteral views with 0.25ml of omnipaque 240 injected at each level. This revealed appropriate spread and no vascular uptake. At each point 0.3ml 0.5% bupivicaine was injected. Vital signs were stable throughout the procedure and were as recorded in the docflowsheet by the nursing staff. Follow up plans and appointments were discussed and patient was instructed to keep careful note of how the usual pain was modified by these injections. Specifically, the patient was asked to keep a pain diary for the next 24 hours using a numeric pain scale of 0-10 and report these results at the follow-up visit. Post procedure instruction was given as documented in the nursing documentation and having met discharge criteria, and was discharged from the [facility]. Based on the medial branches blocked today, if they patient has adequate relief and we are able to proceed to radiofrequency ablation, the treatment should result in the denervation of the left C3-C4, C4-C5, and C5-C6 FACET JOINTS. We would expect to denervate a total of 3 facets during the radiofrequency ablation. COMMENTS: Post-procedure pain VAS to the left neck was 8/10. Sky Atkinson DO, MPH [facility] CC: Porfirio Engel
== END 2022-06-01 10:05 | disposition home or self-care (01) ==
LOC: PC 10:05
PROVIDERS: PCP Family Medicine; Visit Provider Preventive Medicine Occupational Medicine
DX: M47.812 Spondylosis without myelopathy or radiculopathy, cervical region (principal)
CPT/HCPCS: 64490; 64491; 64492; 72040; Q9967